=== PATIENT | male | born 1980 | race Caucasian/White ===

== ENCOUNTER 2019-07-26 18:19 | Emergency (ER) | payer MEDICAID ==
--- NOTE | 2019-07-26 19:46 | EDM.PDOC ---
ED HPI GENERAL MEDICAL PROBLEM - General Chief Complaint: Laceration Stated Complaint: LACERATION TO LEFT HAND Time Seen by Provider: 07/26/19 18:47 Source of Information: Reports: Patient History Limitations: Reports: No Limitations - History of Present Illness INITIAL COMMENTS - FREE TEXT/NARRATIVE: This gentleman was using a knife and somehow jabbed himself in the left hand with it. The knife blade entered the left hand in the webbing between the thumb and index finger. He thinks it went in a pretty good ways. He has pain but is able to move his hand normally and has good sensation. Tetanus not up-to-date Right Hand Pain Score (Numeric/FACES): 1 - Related Data Allergies Allergy/AdvReac Type Severity Reaction Status Date / Time No Known Allergies Allergy Verified 07/26/19 18:37 Home Meds: Home Meds Omeprazole 40 mg PO DAILY 07/26/19 [History] Past Medical History HEENT History: Reports: None Gastrointestinal History: Reports: GERD Musculoskeletal History: Reports: None Endocrine/Metabolic History: Reports: Obesity/BMI 30+ - Past Surgical History Head Surgeries/Procedures: Reports: None HEENT Surgical History: Reports: Adenoidectomy, Tonsillectomy GI Surgical History: Reports: None Endocrine Surgical History: Reports: None Musculoskeletal Surgical History: Reports: Other (See Below) Dermatological Surgical History: Reports: None Social & Family History - Tobacco Use Smoking Status *Q: Former Smoker Used Tobacco, but Quit: Yes Month/Year Tobacco Last Used: 2004 - Caffeine Use Caffeine Use: Reports: Soda - Alcohol Use Days Per Week of Alcohol Use: 3 Number of Drinks Per Day: 3 Total Drinks Per Week: 9 - Recreational Drug Use Recreational Drug Use: Yes Drug Use in Last 12 Months: Yes Recreational Drug Type: Reports: Marijuana/Hashish Recreational Drug Use Frequency: Daily ED ROS GENERAL - Review of Systems Review Of Systems: ROS reveals no pertinent complaints other than HPI. ED EXAM, SKIN/RASH Exam: See Below Exam Limited By: No Limitations General Appearance: Alert, WD/WN Extremities: Other (The left hand there is a linear laceration approximately 1.5 cm long is in line with the webbing of the left hand between the thumb and the forefinger other words it entered parallel and over the webbing rather than going across it. Edges are well approximated. Neurovascular tendon all intact) Course - Vital Signs Last Recorded V/S: Last Vital Signs Temp 35.9 C 07/26/19 18:40 Pulse 62 07/26/19 18:40 Resp 14 07/26/19 18:40 BP 119/67 07/26/19 18:40 Pulse Ox 92 L 07/26/19 18:40 - Orders/Labs/Meds Orders: Active Orders 24 hr Category Date Time Status Vaccines to be Administered [RC] PER UNIT ROUTINE Care 07/26/19 19:41 Ordered Diphth,Pertuss(Acell),Tet Vac [Adacel] Med 07/26/19 19:40 Once 0.5 ml IM .ONCE ONE Medication Orders Diphtheria/Tetanus/Acell Pertussis (Adacel) 0.5 ml IM .ONCE ONE Stop: 07/26/19 19:41 Meds: Medications Generic Name Dose Route Start Last Admin Trade Name Freq PRN Reason Stop Dose Admin Diphtheria/Tetanus/Acell Pertussis 0.5 ml 07/26/19 19:40 Adacel IM 07/26/19 19:41 .ONCE ONE Discontinued Medications Generic Name Dose Route Start Last Admin Trade Name Freq PRN Reason Stop Dose Admin Lidocaine HCl 20 ml 07/26/19 18:47 Xylocaine 1% INJECT 07/26/19 18:48 ONETIME ONE - Re-Assessments/Exams Free Text/Narrative Re-Assessment/Exam: 07/26/19 19:43 The procedure, laceration repair: The wound was injected with approximately 8 mL of 1% plain lidocaine. The skin was then scrubbed with Hibiclens and saline. The wound margins were then lifted and the wound was irrigated with normal saline by syringe. 3 cotton swabs soaked in saline were used to probe the wound and the wound is no more than about 1 cm deep but does Tylenol another centimeter and the direction of the index finger. All areas were thoroughly lavaged. Edges were then reapproximated reinforced with 2 Steri-Strips and then covered with Dermabond adhesive. Departure - Departure Time of Disposition: 19:45 Disposition: Home, Self-Care 01 Condition: Fair Clinical Impression: Hand laceration - Discharge Information Referrals: PCP,None [Primary Care Provider] - Additional Instructions: Do not put anything on the wound. Especially do not put on any antibiotic ointment that would dissolve the glue. You can leave it open or if you decide to cover it with some gauze be sure that she don't pull the glue and tape off. Wear gloves when working. Try to leave the glue on for 1 week. Watch for signs of infection - My Orders Last 24 Hours: My Active Orders 07/26/19 19:40 Diphth,Pertuss(Acell),Tet Vac [Adacel] 0.5 ml IM .ONCE ONE 07/26/19 19:41 Vaccines to be Administered [RC] PER UNIT ROUTINE - Assessment/Plan Last 24 Hours: My Active Orders 07/26/19 19:40 Diphth,Pertuss(Acell),Tet Vac [Adacel] 0.5 ml IM .ONCE ONE 07/26/19 19:41 Vaccines to be Administered [RC] PER UNIT ROUTINE
[2019-07-26] MEDS: Lidocaine 1% 20 ML MDV INJECT ONE (19:53)
[2019-07-26] MEDS: Diphtheria,Pertussis(Acell),Tetanus Vaccine 0.5 ML SDV IM ONE (19:53)
== END 2019-07-26 19:56 | disposition home or self-care (01) ==
LOC: JP.ED 18:19
DX: S61.412A Laceration without foreign body of left hand, initial encounter (principal); Z23 Encounter for immunization; W26.0XXA Contact with knife, initial encounter
CPT/HCPCS: 12001; 90471; 90715; 99282; J2001